=== PATIENT | male | born 1975 | race African-American/Black ===

== ENCOUNTER 2020-08-17 11:02 | Emergency (ER) | payer OTHER ==
[~2020-08-17] VITALS: Ht 182.9 cm; Wt 154.2 kg
[2020-08-17] MEDS ORDERED: NAPROSYN500 MG PO (12:24)
[2020-08-17 13:06] VITALS: BP 167/102
== END 2020-08-17 13:46 | disposition home or self-care (01) ==
LOC: ER 11:02
DX: S83.91XA Sprain of unspecified site of right knee, initial encounter (principal); E66.01 Morbid (severe) obesity due to excess calories; Z68.41 Body mass index [BMI] 40.0-44.9, adult; X58.XXXA Exposure to other specified factors, initial encounter; Y93.02 Activity, running; Y92.89 Other specified places as the place of occurrence of the external cause; Y99.8 Other external cause status